=== PATIENT | female | born 1990 | race Caucasian/White ===

== ENCOUNTER → 2023-11-01 16:53 | Outpatient (REF) | payer OTHER, SELFPAY | LOC: PNTC 16:53 | PROVIDERS: ATTENDING PHYSICIAN Obstetrics & Gynecology | DX: O35.8XX0 Maternal care for other (suspected) fetal abnormality and damage, not applicable or unspecified (principal) | CPT/HCPCS: 76816 ==

== ENCOUNTER → 2023-11-30 17:32 | Outpatient (REF) | payer OTHER, SELFPAY | LOC: PNTC 17:32 | PROVIDERS: ATTENDING PHYSICIAN Obstetrics & Gynecology | DX: O35.8XX0 Maternal care for other (suspected) fetal abnormality and damage, not applicable or unspecified (principal) | CPT/HCPCS: 76816 ==

== ENCOUNTER → 2023-12-27 17:28 | Outpatient (REF) | payer OTHER, SELFPAY | LOC: PNTC 17:28 | PROVIDERS: ATTENDING PHYSICIAN Obstetrics & Gynecology | DX: O35.8XX0 Maternal care for other (suspected) fetal abnormality and damage, not applicable or unspecified (principal) | CPT/HCPCS: 76816 ==

== ENCOUNTER 2024-01-09 22:41 | Inpatient (IN) | payer OTHER, SELFPAY ==
[2024-01-09 22:52] VITALS: BMI 34.4
[2024-01-09] MEDS: LR 1000 IV (23:29)
[2024-01-09 23:33] LABS: % Basophils 0.3 % (0-2); % Eosinophils 0.7 % (0-6); % Immature Granulocytes 0.6 % (0-0.5); % Lymphocytes 13.4 % (20.5-51.1); % Monocytes 7.2 % (1.7-9.3); % Neutrophils 77.8 % (42.2-75.2); Absolute Eosinophils 0.1 10^3/uL (0-0.7); Absolute Immature Granulocytes 0.1 10^3/uL (0-0.05); Absolute Lymphocytes 2.1 10^3/uL (1.2-3.4); Absolute Monocytes 1.1 10^3/uL (0.1-0.6); Absolute Neutrophils 12.1 10^3/uL (1.4-6.5); Hematocrit 34.9 % (37.0-47.0); Hemoglobin 11.9 g/dL (12.0-16.0); Mean Corp Hgb Conc. 34.1 g/dL (33.0-37.0); Mean Corpuscular Hgb 30.6 pg (27.0-31.0); Mean Corpuscular Volume 89.7 fL (81.0-99.0); Mean Platelet Volume 10.1 fL (7.4-10.4); Nucleated Red Blood Cells % 0 %; Platelet Count 231 10^3/uL (130-400); Red Blood Cell Count 3.89 10^6/uL (4.20-5.40); Red Cell Dist. Width 13.7 % (11.5-14.5); White Blood Cell Count 15.5 10^3/uL (4.8-10.8)
[2024-01-10] MEDS: FENTANYL/BUPIVACAINE 100 EPIDURAL (00:21)
[2024-01-10] MEDS: SUBLIMAZE 100 MCG EPIDURAL (00:21)
[2024-01-10] MEDS: PITOCIN 30 UNITS/NSS 500 ML IV (03:00)
[2024-01-10] MEDS: PRENATAL PLUS 1 TABLET PO (12:40)
[2024-01-10] MEDS: TYLENOL 650 MG PO (12:40)
[2024-01-10] MEDS: MOTRIN 600 MG PO (20:13)
[2024-01-11] MEDS: MOTRIN 600 MG PO ×4 (02:35→23:10)
[2024-01-11] MEDS: TYLENOL 650 MG PO ×4 (02:35→23:09)
[2024-01-11 06:36] LABS: Hematocrit 32.3 % (37.0-47.0); Hemoglobin 10.9 g/dL (12.0-16.0)
[2024-01-11] MEDS: PRENATAL PLUS 1 TABLET PO (08:29)
[2024-01-11] MEDS: SENOKOT-S 1 TABLET PO (08:29)
[2024-01-12] MEDS: TYLENOL 650 MG PO (08:38)
[2024-01-12] MEDS: PRENATAL PLUS 1 TABLET PO (08:38)
[2024-01-12] MEDS: SENOKOT-S 1 TABLET PO (08:38)
[2024-01-12] MEDS: MOTRIN 600 MG PO (08:39)
[2024-01-12 14:34] LABS: Syphilis/T. pallidum Ab Reflex Negative (Negative)
== END 2024-01-12 12:35 | disposition home or self-care (01) | DRG 807 ==
LOC: LDRP 22:41
PROVIDERS: ADMITTING PHYSICIAN Obstetrics & Gynecology
PROC: 0KQM0ZZ Repair Perineum Muscle, Open Approach (ICD-10-PCS; 2024-01-10)
PROC: 10E0XZZ Delivery of Products of Conception, External Approach (ICD-10-PCS; 2024-01-10)
DX: O99.214 Obesity complicating childbirth (principal); Z37.0 Single live birth; Z3A.39 39 weeks gestation of pregnancy; O70.1 Second degree perineal laceration during delivery; O71.82 Other specified trauma to perineum and vulva; O66.0 Obstructed labor due to shoulder dystocia; O36.63X0 Maternal care for excessive fetal growth, third trimester, not applicable or unspecified
CPT/HCPCS: 85014; 85018; 85025; 86780; 86850; 86900; 86901